=== PATIENT | female | born 1975 | race African-American/Black ===

== ENCOUNTER 2018-05-22 05:13 | Inpatient (IN) | payer BC ==
--- NOTE | 2018-05-20 12:27 | RADIOLOGY REPORT (SQ) ---
EXAM DESCRIPTION: CHEST PA/LATERAL COMPLETED DATE/TIME: 05/20/2018 12:17 pm REASON FOR STUDY: PRE-OP COMPARISON: And study 11 EXAM PARAMETERS: NUMBER OF VIEWS: two views TECHNIQUE: Digital Frontal and Lateral radiographic views of the chest acquired. RADIATION DOSE: NA LIMITATIONS: none FINDINGS: LUNGS AND PLEURA: No opacities, masses or pneumothorax. No pleural effusion. MEDIASTINUM AND HILAR STRUCTURES: No masses or contour abnormalities. HEART AND VASCULAR STRUCTURES: Heart normal size. No evidence for failure. BONES: No acute findings. HARDWARE: None in the chest. OTHER: No other significant finding. IMPRESSION: NO SIGNIFICANT RADIOGRAPHIC FINDING IN THE CHEST. TECHNICAL DOCUMENTATION: JOB ID: [id number] [employer]- All Rights Reserved Reading location - IP/workstation name: [email or web address]
[2018-05-20 12:41] LABS: APPEARANCE,URINE SLIGHTLY-CLOUDY; BILIRUBIN,URINE NEGATIVE (NEGATIVE); COLOR,URINE YELLOW; GLUCOSE, URINE NEGATIVE (NEGATIVE); KETONES,URINE NEGATIVE (NEGATIVE); LEUKOCYTE ESTERASE,URINE MODERATE (NEGATIVE); NITRITE,URINE NEGATIVE (NEGATIVE); PROTEIN,URINE 30 mg/dL (NEGATIVE)
[2018-05-20 12:49] LABS: ANION GAP 8 (5-19); BLOOD UREA NITROGEN 6 mg/dL (7-20); CALCIUM 9.4 mg/dL (8.4-10.2); CARBON DIOXIDE 27 mmol/L (22-30); CHLORIDE 105 mmol/L (98-107); GLUCOSE 88 mg/dL (75-110); POTASSIUM 4.6 mmol/L (3.6-5.0); SODIUM 139.5 mmol/L (137-145)
--- NOTE | 2018-05-21 00:08 | EKG REPORT ---
SEVERITY:- NORMAL ECG - SINUS RHYTHM : Confirmed by: Daren Benoit 21-May-2018 00:08:05
[2018-05-21 15:16] LABS: PLATELET COUNT 182 10^3/uL (150-450); RED BLOOD COUNT 5.77 10^6/uL (3.72-5.28); RED CELL DISTRIBUTION WIDTH 22.8 % (11.5-14.0); WHITE BLOOD COUNT 7.5 10^3/uL (4.0-10.5)
[2018-05-21 15:32] LABS: HEMATOCRIT 27.2 % (36.0-47.0); MEAN CORPUSCULAR HGB CONC 25.5 g/dL (32.0-36.0)
[2018-05-21 16:43] LABS: MEAN CORPUSCULAR VOLUME < 50 fl (80-97)
[2018-05-21 16:49] LABS: HEMOGLOBIN 6.9 g/dL (12.0-15.5)
[~2018-05-22 05:13] MED LIST: CEFAZOLIN 1 GM/D5W RTU 1 GM/50 ML RTUPB IV ONE; CEFAZOLIN 1 GM/D5W RTU 1 GM/50 ML RTUPB IV PRN; LACTATED RINGERS 1000 ML IV PRN; LIDOCAINE 0.5% INJ-PF (5 MG/ML) 50 ML SDV SUBCUT PRN
[2018-05-22] MEDS ORDERED: LIDOCAINE 2% INJ-PF (20 MG/ML) 10 ML AMPUL ONE (06:39)
[2018-05-22] MEDS ORDERED: MIDAZOLAM 2 MG/2 ML INJ ONE (06:39)
[2018-05-22] MEDS ORDERED: EPHEDRINE SULFATE INJ 50 MG/1 ML AMPULE ONE (06:39)
[2018-05-22] MEDS ORDERED: FENTANYL CITRATE INJ/PF 250 MCG/5 ML AMPULE ONE (06:39)
[2018-05-22] MEDS ORDERED: PROMETHAZINE HCL INJ 25 MG/1 ML VIAL ONE (06:39)
[2018-05-22] MEDS ORDERED: ONDANSETRON HCL INJ/PF 4 MG/2 ML SDV ONE (06:39)
[2018-05-22] MEDS ORDERED: HYDROMORPHONE HCL INJ/PF 2 MG/ML AMPULE ONE (06:40)
[2018-05-22] MEDS ORDERED: PROPOFOL INJ 200 MG/20 ML VIAL IV ONE (06:40)
[2018-05-22] MEDS ORDERED: ACETAMINOPHEN 1,000 MG/100 ML RTUPB IV ONE (06:40)
[2018-05-22] MEDS ORDERED: BUPIVACAINE INJ/PF LIPOSOME/PF 266 MG/20 ML SDV ONE (06:50)
[2018-05-22] MEDS ORDERED: FENTANYL CITRATE INJ/PF 100 MCG/2 ML AMPUL IV PRN ×3 (07:37)
[2018-05-22] MEDS ORDERED: PROMETHAZINE HCL INJ 25 MG/1 ML VIAL IV PRN ×2 (07:37)
[2018-05-22] MEDS ORDERED: MORPHINE SULFATE 10 MG/ML INJ IV PRN (07:37)
[2018-05-22] MEDS ORDERED: MEPERIDINE HCL/PF INJ 25 MG/1 ML DISP.SYRIN IV PRN (07:37)
[2018-05-22] MEDS ORDERED: DIPHENHYDRAMINE HCL 50 MG/ML VIAL IV PRN (07:37)
[2018-05-22] MEDS ORDERED: LABETALOL HCL INJ 20 MG/4 ML DISP.SYRIN IV ONE (08:47)
[2018-05-22] MEDS ORDERED: SCOPOLAMINE HYDROBROMIDE 1.5 MG PATCH.TD72 ONE (08:48)
[2018-05-22] MEDS ORDERED: MORPHINE INJ 4 MG DOSE (EDIT ROUTE) INJ PRN (09:00)
[2018-05-22] MEDS ORDERED: PROMETHAZINE HCL INJ 25 MG/1 ML VIAL IM PRN (09:00)
[2018-05-22] MEDS ORDERED: MORPHINE INJ 8 MG DOSE IM PRN (09:00)
[2018-05-22] MEDS ORDERED: OXYCODONE-ACETAMINOPHEN 5-325 MG TABLET PO PRN (09:00)
[2018-05-22] MEDS ORDERED: MORPHINE INJ 6 MG DOSE (EDIT ROUTE) INJ PRN (09:00)
--- NOTE | 2018-05-22 10:37 | OPERATIVE REPORT E ---
Operative Report NAME: ADRIÁN LÓPEZ : 1975 AGE: 43Y DATE OF SURGERY: 05/22/2018 ROOM: OR PREOPERATIVE DIAGNOSIS: UTERINE LEIOMYOMA. POSTOPERATIVE DIAGNOSIS: UTERINE LEIOMYOMA. OPERATION: Supracervical hysteroscopy SURGEON: RITA PLAZA M.D. ANESTHESIA: General endotracheal. COMPLICATIONS: None. FINDINGS: Approximately an 18-week size uterus. Normal tubes and ovaries were identified. Normal cervix was noted. INDICATIONS FOR PROCEDURE: The patient had asymptomatic anemia. Hemoglobin was 7 upon arrival to the operating room. Two units of blood was set up and given intraoperatively. The usual risks of bleeding, infection, anesthesia, and damage to organs or tissues have been discussed with the patient who understood. PROCEDURE: The patient was taken to the operating room and placed in the modified lithotomy position after adequate anesthesia was ascertained, prepped and draped in the usual manner for a hysteroscopy. Through a midline incision, after surgical time out was performed, antibiotics had been given, we performed the incision of the skin down to the fascia and entered in peritoneum uneventfully. This extended up to the umbilicus and down to the symphysis pubis. The uterus was exteriorized. Uterine ovarian ligaments were cross clamped, cut, and held. Using a LigaSure cautery device the adnexa was removed from the uterus down to the uterine vessels. Good hemostasis was noted at this level as per the procedure. The level of the uterine vessels, tags were placed with #1 Chronic catgut. The uterus was amputated from the cervix and handed off of the operative field, allowing proper assessment of the cervix and pelvis. Elected at this point to stop the procedure as the goals of operation had been met. Bleeding was nil at the completion of procedure. This terminated procedure and the cervix was closed with interrupted normochromic catgut in multiple fashion. Abdomen was copiously irrigated. Abdomen was examined to be normal. The tubes and ovaries left in situ appeared to be normal. The fascia being close with double-stranded #1 PDS suture. Skin approximated with skin yunior. The patient awakened and taken to recovery room in stable condition. DICTATING PHYSICIAN: RITA PLAZA M.D. [id number] Y#: [id number] ID: [id number] JOB#: [id number] ACCT: [id number] cc:RITA PLAZA M.D. >
[2018-05-22] MEDS ORDERED: NEOSTIGMINE METHYLSULFATE 10 MG/10 ML VIAL ONE (12:50)
[2018-05-22] MEDS ORDERED: ROCURONIUM BROMIDE INJ 50 MG/5 ML VIAL IV ONE (12:50)
[2018-05-22] MEDS ORDERED: GLYCOPYRROLATE 1 MG/5 ML SYRINGE ONE (12:50)
[2018-05-22] MEDS ORDERED: SUCCINYLCHOLINE CHLORIDE INJ 200 MG/10 ML VIAL ONE (12:50)
[2018-05-22 13:14] LABS: PATH REVIEW PATHOLOGIST REVIEWED
[2018-05-22] MEDS: IBUPROFEN 800 MG TABLET PO SCH ×2 (14:24→21:24)
[2018-05-22] MEDS: CEFAZOLIN 1 GM RTU (EDIT START TIME) IV SCH ×2 (14:28→21:25)
[2018-05-23 05:12] LABS: HEMATOCRIT 28.2 % (36.0-47.0); HEMOGLOBIN 8.2 g/dL (12.0-15.5); MEAN CORPUSCULAR HGB CONC 29.1 g/dL (32.0-36.0); PLATELET COUNT 175 10^3/uL (150-450); RED BLOOD COUNT 5.12 10^6/uL (3.72-5.28); RED CELL DISTRIBUTION WIDTH 38.9 % (11.5-14.0)
[2018-05-23 05:32] LABS: MEAN CORPUSCULAR VOLUME 55 fl (80-97)
[2018-05-23] MEDS: IBUPROFEN 800 MG TABLET PO SCH (05:33)
[2018-05-23 09:25] VITALS: BP 137/87
== END 2018-05-23 10:20 | disposition home or self-care (01) | DRG 743 ==
LOC: INOR 05:13 → 2S 10:08
PROVIDERS: ADMIT Specialist; ATTEND Specialist
PROC: 30233N1 Transfusion of Nonautologous Red Blood Cells into Peripheral Vein, Percutaneous Approach (ICD-10-PCS; 2018-05-22)
PROC: 0UT90ZL Resection of Uterus, Supracervical, Open Approach (ICD-10-PCS; principal; 2018-05-22 07:15)
DX: D25.0 Submucous leiomyoma of uterus (principal); N92.0 Excessive and frequent menstruation with regular cycle; D64.9 Anemia, unspecified; Z98.891 History of uterine scar from previous surgery
CPT/HCPCS: 36415; 36430; 71046; 80048; 81001; 81025; 840; 85027; 86850; 86900; 86901; 86920; 88307; 93005; 93010; 94799; C9290; J0131; J0330; J0690; J1170; J2250; J2270; J2405; J2550; J2704; J3010; J3490; P9016

== ENCOUNTER 2018-09-24 07:17 | Emergency (ER) | payer BC ==
[2018-09-24 07:31] VITALS: BP 134/74
--- NOTE | 2018-09-24 09:29 | ER Document Report ---
HPI - HPI Time Seen by Provider: 09/24/18 09:08 Pain Level: 2 Notes: Patient is a 43-year-old female presented to the emergency department with chief complaint of neck, shoulder and left hand pain. Patient reports approximately 1 week ago she woke up with a stiff neck. States this has slowly improved however she continues to have pain in both shoulders and her right hand. Patient does report intermittent numbness and tingling to some of the fingers in her hands. Denies any direct trauma. - REPRODUCTIVE Reproductive: DENIES: : Past Medical History - General Information source: Patient - Social History Smoking Status: Never Smoker Family History: Reviewed & Not Pertinent Patient has suicidal ideation: No Patient has homicidal ideation: No - Past Medical History Cardiac Medical History: Denies: Hx Pulmonary Embolism Pulmonary Medical History: Reports: Hx Bronchitis Denies: Hx Asthma, Hx COPD, Hx Pneumonia, Hx Respiratory Failure, Hx Sleep Apnea, Hx Tuberculosis Renal/ Medical History: Reports: Hx Ovarian Cysts. Denies: Hx Peritoneal Dialysis, Hx Pelvic Inflammatory Disease Malignancy Medical History: Denies: Hx Breast Cancer, Hx Cervical Cancer, Hx Leukemia, Hx Lung Cancer, Hx Ovarian Cancer Psychiatric Medical History: Denies: Hx Bipolar Disorder, Hx Depression, Hx Post Traumatic Stress Disorder, Hx Schizophrenia Infectious Medical History: Denies: Hx HIV Past Surgical History: Reports: Hx Section - x2, Hx Hysterectomy. Denies: Hx Appendectomy, Hx Bowel Surgery, Hx Cholecystectomy, Hx Coronary Artery Bypass Graft, Hx Gastric Bypass Surgery, Hx Herniorrhaphy, Hx Mastectomy, Hx Pacemaker, Hx Tonsillectomy, Hx Tubal Ligation - Immunizations Hx Diphtheria, Pertussis, Tetanus Vaccination: Yes - 03/07/10 Vertical Provider Document - CONSTITUTIONAL Notes: PHYSICAL EXAMINATION: GENERAL: Well-appearing, well-nourished and in no acute distress. HEAD: Atraumatic, normocephalic. EYES: Pupils equal round extraocular movements intact, conjunctiva are normal. ENT: Nares patent NECK: Normal range of motion LUNGS: No respiratory distress Musculoskeletal: Normal range of motion, tenderness to palpation to trapezius muscles on right and left, no vertebral tenderness, step-off or deformity. Strong and equal bag sealer bilaterally, normal motor and sensation to bilateral upper extremities. NEUROLOGICAL: Normal speech, normal gait. PSYCH: Normal mood, normal affect. SKIN: Warm, Dry, normal turgor, no rashes or lesions noted. - INFECTION CONTROL TRAVEL OUTSIDE OF THE [place] IN LAST 30 DAYS: No Course - Re-evaluation Re-evalutation: Patient denies any chest pain, shortness of breath or fever. Based upon physical examination as well as history of illness pain appears to be musculoskeletal in nature. Patient will be encouraged to take ibuprofen and will be started on a course of Robaxin. She will follow-up with her primary care provider if pain does not improve over the next 2 to 3 days. - Vital Signs Vital signs: Temp Pulse Resp BP Pulse Ox 98 F 72 18 134/74 H 98 09/24/18 07:30 09/24/18 07:30 09/24/18 07:30 09/24/18 07:30 09/24/18 07:30 Discharge - Discharge Clinical Impression: Musculoskeletal strain Shoulder pain Qualifiers: Chronicity: acute Laterality: right Qualified Code(s): M25.511 - Pain in right shoulder Hand pain Qualifiers: Laterality: left Qualified Code(s): M79.642 - Pain in left hand Condition: Stable Disposition: HOME, SELF-CARE Additional Instructions: From what you have described as I believe the pain in your arm and hand is coming from a strained muscle in your upper back/shoulder. Please take ibuprofen 600 mg every 6 hours for the next several days. This will help with inflammation. Please use the muscle relaxer as prescribed. Please follow-up with primary care provider as discussed. Prescriptions: Methocarbamol [Robaxin 750 mg Tablet] 750 mg PO ASDIR PRN #40 tablet PRN Reason: Forms: Return to Work Referrals: ELIOT HAND DO [Primary Care Provider] - Follow up as needed
== END 2018-09-24 09:30 | disposition home or self-care (01) ==
LOC: ER 07:17
DX: M54.2 Cervicalgia (principal); M79.642 Pain in left hand; M43.6 Torticollis; R20.0 Anesthesia of skin; Z90.710 Acquired absence of both cervix and uterus
CPT/HCPCS: 99283

== ENCOUNTER 2019-05-09 07:10 | Emergency (ER) | payer BC ==
--- NOTE | 2019-05-09 08:50 | RADIOLOGY REPORT (SQ) ---
EXAM DESCRIPTION: ANKLE LEFT COMPLETE COMPLETED DATE/TIME: 05/09/2019 8:11 am REASON FOR STUDY: fall injury COMPARISON: None. NUMBER OF VIEWS: Three views. TECHNIQUE: AP, lateral, and oblique radiographic images acquired of the left ankle. LIMITATIONS: None. FINDINGS: MINERALIZATION: Normal. BONES: No acute fracture or dislocation. No worrisome bone lesions. JOINTS: No effusions. SOFT TISSUES: Diffuse swelling. No foreign body. OTHER: No other significant finding. IMPRESSION: No fracture. TECHNICAL DOCUMENTATION: JOB ID: [id number] [employer]- All Rights Reserved Reading location - IP/workstation name: [email or web address]
--- NOTE | 2019-05-09 09:33 | ER Document Report ---
ED Extremity Problem, Lower - General Chief Complaint: Ankle Injury Stated Complaint: ANKLE INJURY Time Seen by Provider: 05/09/19 09:31 Mode of Arrival: Ambulatory Information source: Patient TRAVEL OUTSIDE OF THE [place] IN LAST 30 DAYS: No - HPI Patient complains to provider of: Injury Location: Ankle Occurred: This morning Where: Home Onset/Duration: Sudden Quality of pain: Achy Severity: Moderate Pain Level: 3 Recent injury: No Exacerbated by: Movement Notes: Patient reports she was leaving her home this a.m. when she made her last step she twisted her left ankle as she was stepping down from the porch. Patient states she twisted her ankle and fell. No other injury other than pain in the left ankle. - Related Data Allergies/Adverse Reactions: No Known Allergies Allergy (Verified 05/09/19 07:56) Past Medical History - Social History Smoking Status: Never Smoker Frequency of alcohol use: None Drug Abuse: Marijuana Lives with: Family Family History: Reviewed & Not Pertinent Patient has suicidal ideation: No Patient has homicidal ideation: No - Past Medical History Cardiac Medical History: Denies: Hx Pulmonary Embolism Pulmonary Medical History: Reports: Hx Bronchitis Denies: Hx Asthma, Hx COPD, Hx Pneumonia, Hx Respiratory Failure, Hx Sleep Apnea, Hx Tuberculosis Renal/ Medical History: Reports: Hx Ovarian Cysts. Denies: Hx Peritoneal Dialysis, Hx Pelvic Inflammatory Disease Malignancy Medical History: Denies: Hx Breast Cancer, Hx Cervical Cancer, Hx Leukemia, Hx Lung Cancer, Hx Ovarian Cancer Psychiatric Medical History: Denies: Hx Bipolar Disorder, Hx Depression, Hx Post Traumatic Stress Disorder, Hx Schizophrenia Infectious Medical History: Denies: Hx HIV Past Surgical History: Reports: Hx Section - x2, Hx Hysterectomy. Denies: Hx Appendectomy, Hx Bowel Surgery, Hx Cholecystectomy, Hx Coronary Artery Bypass Graft, Hx Gastric Bypass Surgery, Hx Herniorrhaphy, Hx Mastectomy, Hx Pacemaker, Hx Tonsillectomy, Hx Tubal Ligation - Immunizations Hx Diphtheria, Pertussis, Tetanus Vaccination: Yes - 03/07/10 Review of Systems - Review of Systems Musculoskeletal: See HPI Physical Exam - Vital signs Vitals: Temp Pulse Resp BP Pulse Ox 97.4 F 75 18 125/75 99 05/09/19 07:13 05/09/19 07:13 05/09/19 07:13 05/09/19 07:13 01/03/20 07:13 Interpretation: Normal - General General appearance: Appears well, Alert - HEENT Head: Normocephalic, Atraumatic Eyes: Normal Pupils: PERRL - Respiratory Respiratory status: No respiratory distress Chest status: Nontender Breath sounds: Normal Chest palpation: Normal - Cardiovascular Rhythm: Regular Heart sounds: Normal auscultation Murmur: No - Abdominal Inspection: Normal Distension: No distension Bowel sounds: Normal Tenderness: Nontender Organomegaly: No organomegaly - Back Back: Normal, Nontender - Extremities General upper extremity: Normal inspection, Nontender, Normal color, Normal ROM, Normal temperature General lower extremity: Normal inspection, Nontender, Normal color, Normal ROM, Normal temperature, Normal weight bearing. No: Radha's sign Ankle: Tender, Other - Left ankle with tenderness palpated. No deformity no ecchymosis and no significant swelling noted. Full range of motion noted. Neuromotor vascular intact - Neurological Neuro grossly intact: Yes Cognition: Normal Orientation: AAOx4 Sudha Coma Scale Eye Opening: Spontaneous Sudha Coma Scale Verbal: Oriented [place] Coma Scale Motor: Obeys Commands Sudha Coma Scale Total: 15 Speech: Normal Motor strength normal: LUE, RUE, LLE, RLE Sensory: Normal - Psychological Associated symptoms: Normal affect, Normal mood - Skin Skin Temperature: Warm Skin Moisture: Dry Skin Color: Normal Course - Re-evaluation Re-evalutation: 05/09/19 10:05 X-ray report shows no acute process no fracture no significant swelling. - Vital Signs Vital signs: Temp Pulse Resp BP Pulse Ox 97.4 F 75 18 125/75 99 05/09/19 07:13 05/09/19 07:13 05/09/19 07:13 05/09/19 07:13 05/09/19 07:13 - Diagnostic Test Radiology reviewed: Image reviewed, Reports reviewed Discharge - Discharge Clinical Impression: Ankle sprain Condition: Stable Disposition: HOME, SELF-CARE Instructions: Barron Wrap ([facility]) Additional Instructions: Ankle Exercise Program To restore the ankle to normal, it's important to strengthen the muscles that support it -- especially those that lift the foot upward. Good muscle tone will keep stress off the injury while it heals. EARLY - Once the doctor allows you to walk on the ankle, you can begin. Lean your back against a wall. Standing on your heels, lift the balls of both feet up, hold a second, then back down. Work up to 100 repetitions. Next, using the wall for balance, stand on one foot. Lift the heel up, then down. Work up to 100 repetitions for each foot. BALANCE TRAINING - To retrain the ankle to react to "tipping", stand on one foot for two minutes. Go from flat-footed to standing on the toes and back again slowly. Repeat with the other foot. LATER - When your ankle has regained full motion and you're walking pain- free, begin exercise against resistance. In a sitting position, pull the top of the foot towards you against resistance 20 times. Use either elastic material or a weight attached to the toes. Swing the knee so the foot is to the side of the body, and repeat. You have an ankle sprain with minimal swelling at this time. Barron wrap for support and advance ambulation as tolerated in the first 2448 hrs. apply Barron wrap ice, elevation. Advance ambulation as tolerated. Take ibuprofen as needed for pain and swelling. Prescriptions: Ibuprofen [Ibu] 800 mg PO TID PRN #20 tablet PRN Reason: Forms: Return to Work
[2019-05-09] MEDS ORDERED: IBUPROFEN 800 MG TABLET PO ONE (10:00)
[2019-05-09 10:38] VITALS: BP 128/76
== END 2019-05-09 10:35 | disposition home or self-care (01) ==
LOC: ER 07:10
DX: S93.402A Sprain of unspecified ligament of left ankle, initial encounter (principal); X50.1XXA Overexertion from prolonged static or awkward postures, initial encounter
CPT/HCPCS: 99283

== ENCOUNTER → 2019-07-21 | Outpatient (CLI) | payer BC ==
--- NOTE | 2019-07-21 18:24 | RADIOLOGY REPORT (SQ) ---
EXAM DESCRIPTION: U/S EXTREMITY NONVASCULAR LTD COMPLETED DATE/TIME: 07/21/2019 5:37 pm REASON FOR STUDY: R22.9 LOCALIZED SWELLING, MASS AND LUMP, UNSPECIFIED R22.9 LOCALIZED SWELLING, MA SS AND LUMP, UNSPECIFIED COMPARISON: None. TECHNIQUE: Dynamic and static grayscale images acquired of the localized site of clinical concern an d recorded on PACS. Additional selected color Doppler and spectral images recorded. SITE OF CONCERN: Left ON near the elbow anteriorly. LIMITATIONS: None. FINDINGS: SKIN AND SUBCUTANEOUS TISSUES: Subcutaneous hypoechoic lesion measures 2 x 1 x 1.5 cm and appears contain a fatty hilum. DEEP SOFT TISSUES/MUSCLES: No masses. No fluid collections. No edema. VASCULAR: No increased or decreased vascularity. No occlusions. OTHER: No other significant finding. IMPRESSION: The area of concern has the appearance of a lymph node. TECHNICAL DOCUMENTATION: JOB ID: [id number] 2010 [employer]- All Rights Reserved Reading location - IP/workstation name: [email or web address]
--- NOTE | 2019-07-21 18:26 | RADIOLOGY REPORT (SQ) ---
EXAM DESCRIPTION: CERV SP 4 OR 5 VIEWS COMPLETED DATE/TIME: 07/21/2019 5:50 pm REASON FOR STUDY: M54.2 CERVICALGIA R22.9 LOCALIZED SWELLING, MASS AND LUMP, UNSPECIFIED COMPARISON: None. NUMBER OF VIEWS: Five views. TECHNIQUE: AP, lateral, obliques and odontoid radiographic images acquired of the cervical spine. LIMITATIONS: None. FINDINGS: MINERALIZATION: Normal. ALIGNMENT: Anatomic. VERTEBRAE: Vertebral bodies of normal height. DISCS: No significant osteophytes or sclerosis. Disc height maintained. FORAMINA: No osteophytes or foraminal narrowing. LATERAL AND POSTERIOR ELEMENTS: Facets, lateral masses and spinous processes without significant find ings. HARDWARE: None in the spine. SOFT TISSUES: No masses or calcifications. Lung apices clear. OTHER: Right cervical rib. IMPRESSION: Right cervical rib. No other significant finding. TECHNICAL DOCUMENTATION: JOB ID: [id number] 2010 [employer]- All Rights Reserved Reading location - IP/workstation name: [email or web address]
== END ==
LOC: RAD 15:08
PROVIDERS: ATTEND Physician Assistant
DX: R22.9 Localized swelling, mass and lump, unspecified (principal)
CPT/HCPCS: 72050; 76882